=== PATIENT | male | born 1935 | race Caucasian/White ===

== ENCOUNTER 2025-01-28 07:17 | Inpatient (IN) | payer MEDICARE, BC ==
[~2025-01-28] VITALS: Ht 172.7 cm; Wt 60.6 kg
[2025-01-28] MEDS ORDERED: LIDOCAINE 1%-EPI 1:100,000 20 ML VIAL ONE (07:19)
[2025-01-28] MEDS ORDERED: ANESTHESIA TRAY IN PYXIS 1 EA TRAY MC ONE (07:19)
[2025-01-28] MEDS ORDERED: BUPIVACAINE 0.5 % PF 150 MG/30 ML VIAL ONE (07:19)
[2025-01-28] MEDS ORDERED: ROCURONIUM BROMIDE 50 MG/5 ML ONE (08:58)
[2025-01-28] MEDS ORDERED: FENTANYL PF 100MCG/2ML AMPUL ONE ×2 (08:58→09:59)
[2025-01-28] MEDS ORDERED: ACET-2030 PO (11:41)
[2025-01-28] MEDS ORDERED: TRAZ-182 PO (11:41)
[2025-01-28] MEDS ORDERED: ATOR80TA PO (11:41)
[2025-01-28] MEDS ORDERED: SENN-291 PO (11:41)
[2025-01-28] MEDS ORDERED: CYAN500T9 PO (11:41)
[2025-01-28] MEDS ORDERED: LEVE500T20 PO (11:41)
[2025-01-28] MEDS ORDERED: CHOL100043 PO (11:41)
[2025-01-28 12:00] VITALS: BP 123/53; TEMP 97.3; O2SAT 98
[2025-01-28] MEDS ORDERED: TRAMADOL HCL 50 MG TABLET PO PRN (12:30)
[2025-01-28] MEDS ORDERED: KETOROLAC TROMETHAMINE 15 MG/ML VIAL IM PRN (12:30)
[2025-01-28] MEDS ORDERED: HYDROMORPHONE 1 MG/1 ML DISP.SYRIN IV PRN (13:00)
[2025-01-28] MEDS ORDERED: MAG HYDROX/AL HYDROX/SIMETH 30 ML UDC PO PRN (13:00)
[2025-01-28] MEDS ORDERED: ACETAMINOPHEN ES 500 MG TABLET PO PRN (13:00)
[2025-01-28] MEDS ORDERED: Z GUARD REMEDY 4 OZ OINT TP PRN (13:00)
[2025-01-28] MEDS ORDERED: ONDANSETRON HCL/PF 4 MG/2 ML VIAL IVP PRN (13:00)
[2025-01-28] MEDS ORDERED: MAGNESIUM HYDROXIDE 30 ML UDC PO PRN (13:00)
[2025-01-28 13:43] LABS: PLATELET COUNT (AUTO) 124 K/uL (150-450); RED BLOOD CELL COUNT(AUTO) 4.25 MIL/uL (4.5-6.0); RED CELL DISTRIBUTION WIDTH 14.4 % (11.5-15.0); WHITE BLOOD COUNT (AUTO) 12.3 K/uL (4.3-11.0)
[2025-01-28 13:53] LABS: CALCIUM, SERUM 8.8 mg/dL (8.5-10.1); CREATININE 0.8 mg/dL (0.6-1.3); SODIUM SERUM 144.0 mmol/L (136-145); UREA NITROGEN, BLOOD 17.0 mg/dL (7-18)
[2025-01-28 13:57] LABS: PHOSPHORUS 2.9 mg/dL (2.5-4.9)
[2025-01-28] MEDS: IV PREMIX D5 1/2NS + KCL 1,000 ML IV SCH (14:17)
[2025-01-28 16:00] VITALS: BP 124/60; TEMP 98.1; O2SAT 98
[2025-01-28] MEDS: ONDANSETRON HCL/PF 4 MG/2 ML VIAL IVP PRN (16:09)
[2025-01-28 20:00] VITALS: BP 142/80; TEMP 98.2; O2SAT 96
[2025-01-28] MEDS: LEVETIRACETAM (250 MG) 250 MG TABLET PO SCH (21:11)
[2025-01-28] MEDS: TRAZODONE 50 MG TABLET PO SCH (21:11)
[2025-01-28] MEDS: ATORVASTATIN 40 MG TABLET PO SCH (21:12)
[2025-01-28] MEDS: ACETAMINOPHEN 325 MG TABLET PO PRN (23:37)
[2025-01-29 05:00] VITALS: BP 147/71; TEMP 98.6; O2SAT 96
[2025-01-29 07:14] LABS: ASPARTATE AMINOTRANSFERASE 16.0 U/L (15-37); CALCIUM, SERUM 8.7 mg/dL (8.5-10.1); CREATININE 0.9 mg/dL (0.6-1.3); PHOSPHORUS 3.6 mg/dL (2.5-4.9); SODIUM SERUM 140.0 mmol/L (136-145); TOTAL PROTEIN, SERUM 6.4 g/dL (6.4-8.2); UREA NITROGEN, BLOOD 15.0 mg/dL (7-18)
[2025-01-29 07:16] LABS: LDL 61.0 mg/dL (0-99); PLATELET COUNT (AUTO) 132 K/uL (150-450); RED BLOOD CELL COUNT(AUTO) 3.90 MIL/uL (4.5-6.0); RED CELL DISTRIBUTION WIDTH 14.2 % (11.5-15.0); WHITE BLOOD COUNT (AUTO) 10.0 K/uL (4.3-11.0)
[2025-01-29] MEDS: CHOLECALCIFEROL 1,000 UNIT TABLET (VIT D3) PO SCH (08:46)
[2025-01-29] MEDS: CYANOCOBALAMIN 500 MCG TABLET PO SCH (08:46)
[2025-01-29 08:49] VITALS: BP 135/65; TEMP 97.6; O2SAT 96
[2025-01-29] MEDS: SENNOSIDES/DOCUSATE SODIUM 1 UDTAB TABLET PO SCH (11:17)
[2025-01-30] MEDS ORDERED: SENNOSIDES/DOCUSATE SODIUM 1 TAB TABLET PO SCH (09:00)
== END 2025-01-29 14:25 | DRG 352 ==
LOC: DS 07:17 → MED 11:06
PROVIDERS: ADMIT Nurse Practitioner Acute Care; ATTEND Nurse Practitioner Acute Care
PROC: 0YU60JZ Supplement Left Inguinal Region with Synthetic Substitute, Open Approach (ICD-10-PCS; principal; 2025-01-28 09:00)
DX: K40.90 Unilateral inguinal hernia, without obstruction or gangrene, not specified as recurrent (principal); G40.909 Epilepsy, unspecified, not intractable, without status epilepticus; R53.81 Other malaise
CPT/HCPCS: 36415; 80048-TC; 80053-TC; 80061-TC; 83735-TC; 84100-TC; 85025-TC; A4223; G0378; J2405; J2704; J3010; J3490; J7030